=== PATIENT | female | born 1950 | race Caucasian/White ===

== ENCOUNTER → 2016-12-28 | Outpatient (CLI) | payer OTHER, MEDICARE | LOC: BMCIMAGING 09:16 | PROVIDERS: ATTEND Internal Medicine | DX: M79.89 Other specified soft tissue disorders (principal) | CPT/HCPCS: 76536-PO; 84481-90; 84482-90; 86376-90 ==

== ENCOUNTER → 2017-05-10 | Outpatient (CLI) | payer OTHER, MEDICARE | LOC: FIMAGING 13:33 | PROVIDERS: ATTEND Internal Medicine | DX: Z12.31 Encounter for screening mammogram for malignant neoplasm of breast (principal) | CPT/HCPCS: G0202 ==

== ENCOUNTER → 2017-11-10 | Outpatient (CLI) | payer OTHER, MEDICARE | LOC: FIMAGING 08:59 | PROVIDERS: ATTEND Physician Assistant | DX: M48.061 Spinal stenosis, lumbar region without neurogenic claudication (principal); M51.36 Other intervertebral disc degeneration, lumbar region; M43.16 Spondylolisthesis, lumbar region ==

== ENCOUNTER 2017-11-26 13:35 | Inpatient (IN) | payer OTHER, MEDICARE ==
--- NOTE | 2017-11-26 16:16 | EDPHY ---
H & P Time Seen by Provider: 11/26/17 16:15 HPI/ROS: Chief complaint. Shortness of breath HPI. 67-year-old female presents emergency department with a some pain in the right calf and exertional shortness of breath. She had a right knee replacement 2 months ago and was anicteric on anticoagulation for 45 days. 5 days ago she was at physical therapist and was riding a stationary bike and had shortness of breath with exertion. She also notes some shortness of breath with climbing stairs. She is no longer on anticoagulation. She has had no fever cough. She has no chest discomfort. She has no symptoms at rest. She has tightness and continued swelling in her right calf. ROS Constitutional. no fever/chills, no weakness Eyes. no problems with vision ENT. no sore throat, no nasal drainage Cardiovascular. no chest pain Respiratory. Exertional shortness of breath Abdominal. no abdominal pain, no nausea/vomiting, no diarrhea . no problems urinating MS. Swelling and tenderness right calf Skin. no rash Lymph. no swollen glands Neuro. no headache, no dizziness, no difficulty walking or with speech Past Medical/Surgical History: Healthy Social History: , nonsmoker, no alcohol Smoking Status: Never smoked Physical Exam: General Appearance: Alert well-developed female mild distress vital signs are stable Eyes: Pupils equal and round no pallor or injection. ENT, Mouth: Mucous membranes are moist. Respiratory: There are no retractions, lungs are clear to auscultation. Cardiovascular: Regular rate and rhythm. Gastrointestinal: Abdomen is soft and nontender, no masses, bowel sounds normal. Neurological: Awake and alert, sensory and motor exams grossly normal. Skin: Warm and dry, no rashes. Musculoskeletal: Neck is supple nontender. Extremities symmetrical, full range of motion. Mild tenderness and mild swelling to the right calf Psychiatric: Patient is oriented X 3, there is no agitation. Constitutional: Initial Vital Signs Temperature (C) 36.7 C 11/26/17 13:39 Heart Rate 69 11/26/17 13:39 Respiratory Rate 16 11/26/17 13:39 Blood Pressure 136/99 H 11/26/17 13:39 O2 Sat (%) 96 11/26/17 13:39 O2 Delivery Mode Room Air Allergies/Adverse Reactions: ibuprofen Allergy (Verified 11/26/17 13:39) Sulfa (Sulfonamide Antibiotics) Allergy (Verified 11/26/17 13:38) Home Medications: Medication Instructions Recorded Carboxymethylcell/Glycerin/Pf 1 drop EACHEYE PRN PRN 11/26/17 [Refresh Optive Sensitive Drops] Compounded Bioident Hormones 1 unit PO DAILY 11/26/17 Levothyroxine [Synthroid 25 mcg 25 mcg PO DAILY06 11/26/17 (*)] Liothyronine Sodium [Liothyronine 5 mg PO 06,13 11/26/17 Sodium] Montelukast Sodium [Singulair 10 10 mg PO DAILY 11/26/17 mg (*)] cycloSPORINE 0.05% [Restasis Opht 1 drop EACHEYE HS 11/26/17 Drops(*)] Medical Decision Making - Diagnostics Imaging Results: Imaging Impressions Extremity Venous Study 11/26/17 16:18 Impression: 1. DVT in a peroneal vein from the proximal to mid calf. 2. Small Reynolds's cyst. Findings discussed with CANDY CHAVEZ 11/26/2017 at 17:16. Chest X-Ray 11/26/17 16:19 Impression: No evidence for acute cardiopulmonary abnormality. Chest/Thorax CTA 11/26/17 17:26 Impression: Moderate bilateral pulmonary embolus. Results called and discussed with Candy Chavez M.D., on November 26, 2017 at 1808. A test result has been communicated to a licensed care provider and documented in the [facility] Critical Result system on 11/26/2017 18:09, Message ID [id number]. Ultrasound reviewed by me and discussed with Dr. aPrish shows DVT in the peroneal vein Chest CT with IV contrast shows bilateral PEs. Reviewed by me and discussed with Dr. Davila Procedures: Lovenox subcutaneously ED Course/Re-evaluation: Re-evaluation at 5:25 p.m.. Patient and I discussed ultrasound findings and recommendation for chest CT looking for pulmonary embolus. She expresses understanding and agreement I consulted discussed case with Dr. Milligan, hospitalist, who agrees to the admission Differential Diagnosis: The patient has been DVT as well as pulmonary embolus. She is at risk because of recent knee surgery. I considered pneumonia, acute coronary syndrome, calf strain as well - Data Points Laboratory Results: Laboratory Results 11/26/17 16:20 11/26/17 16:20 11/26/17 11/26/17 11/26/17 16:20 16:20 16:20 WBC RBC Hgb Hct MCV MCH MCHC RDW Plt Count MPV Neut % (Auto) Lymph % (Auto) [place] % (Auto) Eos % (Auto) Baso % (Auto) Nucleat RBC Rel Count Absolute Neuts (auto) Absolute Lymphs (auto) Absolute Monos (auto) Absolute Eos (auto) Absolute Basos (auto) Absolute Nucleated RBC Immature Gran % Immature Gran # D-Dimer 3.36 ug/mLFEU H ug/mLFEU (0.00-0.50) Sodium 144 mEq/L mEq/L (135-145) Potassium 4.0 mEq/L mEq/L (3.5-5.2) Chloride 108 mEq/L mEq/L (97-110) Carbon Dioxide 24 mEq/l mEq/l (22-31) Anion Gap 12 mEq/L mEq/L (8-16) BUN 14 mg/dL mg/dL (7-23) Creatinine 0.9 mg/dL mg/dL (0.6-1.0) Estimated GFR > 60 Glucose 80 mg/dL mg/dL (70-100) Calcium 9.4 mg/dL mg/dL (8.5-10.4) Troponin I < 0.012 ng/mL ng/mL (0.000-0.034) 11/26/17 16:20 WBC 6.05 10^3/uL 10^3/uL (3.80-9.50) RBC 4.68 10^6/uL 10^6/uL (4.18-5.33) Hgb 15.1 g/dL g/dL (12.6-16.3) Hct 44.9 % % (38.0-47.0) MCV 95.9 fL fL (81.5-99.8) MCH 32.3 pg pg (27.9-34.1) MCHC 33.6 g/dL g/dL (32.4-36.7) RDW 13.2 % % (11.5-15.2) Plt Count 218 10^3/uL 10^3/uL (150-400) MPV 10.4 fL fL (8.7-11.7) Neut % (Auto) 65.1 % % (39.3-74.2) Lymph % (Auto) 26.3 % % (15.0-45.0) [place] % (Auto) 6.1 % % (4.5-13.0) Eos % (Auto) 2.0 % % (0.6-7.6) Baso % (Auto) 0.3 % % (0.3-1.7) Nucleat RBC Rel Count 0.0 % % (0.0-0.2) Absolute Neuts (auto) 3.94 10^3/uL 10^3/uL (1.70-6.50) Absolute Lymphs (auto) 1.59 10^3/uL 10^3/uL (1.00-3.00) Absolute Monos (auto) 0.37 10^3/uL 10^3/uL (0.30-0.80) Absolute Eos (auto) 0.12 10^3/uL 10^3/uL (0.03-0.40) Absolute Basos (auto) 0.02 10^3/uL 10^3/uL (0.02-0.10) Absolute Nucleated RBC 0.00 10^3/uL 10^3/uL (0-0.01) Immature Gran % 0.2 % % (0.0-1.1) Immature Gran # 0.01 10^3/uL 10^3/uL (0.00-0.10) D-Dimer Sodium Potassium Chloride Carbon Dioxide Anion Gap BUN Creatinine Estimated GFR Glucose Calcium Troponin I Medications Given: Discontinued Medications Enoxaparin Sodium (Lovenox) 65 mg SC EDNOW ONE Stop: 11/26/17 19:31 Last Admin: 11/26/17 19:35 Dose: 65 mg Sodium Chloride (Ns) 1,000 mls @ 0 mls/hr IV ONCE ONE; Wide Open PRN Reason: Protocol Stop: 11/26/17 17:27 Last Admin: 11/26/17 17:50 Dose: 1,000 mls Departure - Departure Disposition: [facility] Acute Clinical Impression: Pulmonary embolus Qualifiers: Pulmonary embolism type: other Chronicity: acute Acute cor pulmonale presence: without acute cor pulmonale Qualified Code(s): I26.99 - Other pulmonary embolism without acute cor pulmonale Deep venous thrombosis Qualifiers: DVT location: lower extremity Affected thrombotic vein of extremity: other lower extremity vein Condition: Fair
[2017-11-26 16:40] LABS: PLATELET COUNT 218 10^3/uL (150-400)
[2017-11-26] MEDS ORDERED: NS 1,000 ML IV ONE (17:26)
[2017-11-26] MEDS ORDERED: IOPAMIDOL (ISOVUE 370) 100 ML BTL IV ONE (17:32)
[2017-11-26] MEDS ORDERED: ENOXAPARIN 60 MG/0.6 ML SYR SC ONE (18:29)
[2017-11-26] MEDS ORDERED: ENOXAPARIN 80 MG/0.8 ML SYR SC ONE (19:30)
[2017-11-26] MEDS ORDERED: ONDANSETRON DISINTEGRATING 4 MG TAB PO PRN (20:50)
[2017-11-26] MEDS ORDERED: ACETAMINOPHEN 325 MG TAB PO PRN (20:50)
[2017-11-26] MEDS ORDERED: oxyCODONE IR 5 MG TAB PO PRN (20:50)
[2017-11-26] MEDS ORDERED: ONDANSETRON 4 MG/2 ML VIAL IVP PRN (20:50)
--- NOTE | 2017-11-26 21:21 | PDGENHP ---
History and Physical - Chief Complaint SOB - History of Present Illness 67 yo female with h/o TKA 2 months prior to arrival presents to ED with SOB. She took Eliquis 2.5 mg twice daily for 45 days post-operatively for DVT prophylaxis. She then developed back pain and was diagnosed with a lumbar facet cyst by MRI 11/10/2017, for which she received a steroid injection ~2 weeks ago. This was a setback in terms of her mobility and she acknowledges being quite sedentary over the past 2 weeks since stopping her Eliquis. Yesterday, she was cleared to ride the exercise bike and she "went for it" on the bike, really pushing herself. She became abnormally short of breath during exercise and grew concerned she may have exercise induced asthma. She also reports a calf cramp in her right calf. She denies chest pain or SOB at rest. No fevers, chills or cough. In the ED, u/s of the leg revealed a DVT and CTPA showed moderate volume b/l PE' s. She was given 1 mg / kg dose of Lovenox and is admitted to the hospital for further management. History Information - Allergies/Home Medication List Allergies/Adverse Reactions: ibuprofen Allergy (Verified 11/26/17 13:39) Sulfa (Sulfonamide Antibiotics) Allergy (Verified 11/26/17 13:38) Home Medications: Carboxymethylcell/Glycerin/Pf [Refresh Optive Sensitive Drops] 1 drop EACHEYE PRN PRN 11/26/17 [Last Taken Unknown] Compounded Bioident Hormones 1 unit PO DAILY 11/26/17 [Last Taken Unknown] Levothyroxine [Synthroid 25 mcg (*)] 25 mcg PO DAILY06 11/26/17 [Last Taken ] Liothyronine Sodium [Liothyronine Sodium] 5 mg PO 06,13 11/26/17 [Last Taken ] Montelukast Sodium [Singulair 10 mg (*)] 10 mg PO DAILY 11/26/17 [Last Taken ] cycloSPORINE 0.05% [Restasis Opht Drops(*)] 1 drop EACHEYE HS 11/26/17 [Last Taken Unknown] I have personally reviewed and updated: family history, medical history, social history, surgical history - Past Medical History Additional medical history: osteoarthritis. lumbar cyst s/p steroid injection - Surgical History Additional surgical history: Right TKA 09/2018 - Family History Positive for: non-pertinent - Social History Smoking Status: Never smoked Alcohol Use: None Drug Use: None Additional social history: , at bedside. Review of Systems Review of Systems: ROS: 10pt was reviewed & negative except for what was stated in HPI & below Physical Exam Physical Exam: Temp Pulse Resp BP Pulse Ox 36.7 C 62 20 111/90 H 99 11/26/17 13:39 11/26/17 19:06 11/26/17 19:06 11/26/17 19:06 11/26/17 19:06 Constitutional: no apparent distress Eyes: PERRL Ears, Nose, Mouth, Throat: moist mucous membranes Cardiovascular: regular rate and rhythym, no murmur, rub, or gallop Respiratory: no respiratory distress, clear to auscultation Gastrointestinal: normoactive bowel sounds, soft, non-tender abdomen Skin: warm Musculoskeletal: full muscle strength Neurologic: AAOx3 Psychiatric: interacting appropriately Lab Data & Imaging Review 11/26/17 16:20 11/26/17 16:20 WBC 6.05 10^3/uL (3.80-9.50) 11/26/17 16:20 RBC 4.68 10^6/uL (4.18-5.33) 11/26/17 16:20 Hgb 15.1 g/dL (12.6-16.3) 11/26/17 16:20 Hct 44.9 % (38.0-47.0) 11/26/17 16:20 MCV 95.9 fL (81.5-99.8) 11/26/17 16:20 MCH 32.3 pg (27.9-34.1) 11/26/17 16:20 MCHC 33.6 g/dL (32.4-36.7) 11/26/17 16:20 RDW 13.2 % (11.5-15.2) 11/26/17 16:20 Plt Count 218 10^3/uL (150-400) 11/26/17 16:20 MPV 10.4 fL (8.7-11.7) 11/26/17 16:20 Neut % (Auto) 65.1 % (39.3-74.2) 11/26/17 16:20 Lymph % (Auto) 26.3 % (15.0-45.0) 11/26/17 16:20 [place] % (Auto) 6.1 % (4.5-13.0) 11/26/17 16:20 Eos % (Auto) 2.0 % (0.6-7.6) 11/26/17 16:20 Baso % (Auto) 0.3 % (0.3-1.7) 11/26/17 16:20 Nucleat RBC Rel Count 0.0 % (0.0-0.2) 11/26/17 16:20 Absolute Neuts (auto) 3.94 10^3/uL (1.70-6.50) 11/26/17 16:20 Absolute Lymphs (auto) 1.59 10^3/uL (1.00-3.00) 11/26/17 16:20 Absolute Monos (auto) 0.37 10^3/uL (0.30-0.80) 11/26/17 16:20 Absolute Eos (auto) 0.12 10^3/uL (0.03-0.40) 11/26/17 16:20 Absolute Basos (auto) 0.02 10^3/uL (0.02-0.10) 11/26/17 16:20 Absolute Nucleated RBC 0.00 10^3/uL (0-0.01) 11/26/17 16:20 Immature Gran % 0.2 % (0.0-1.1) 11/26/17 16:20 Immature Gran # 0.01 10^3/uL (0.00-0.10) 11/26/17 16:20 D-Dimer 3.36 ug/mLFEU (0.00-0.50) H 11/26/17 16:20 Sodium 144 mEq/L (135-145) 11/26/17 16:20 Potassium 4.0 mEq/L (3.5-5.2) 11/26/17 16:20 Chloride 108 mEq/L (97-110) 11/26/17 16:20 Carbon Dioxide 24 mEq/l (22-31) 11/26/17 16:20 Anion Gap 12 mEq/L (8-16) 11/26/17 16:20 BUN 14 mg/dL (7-23) 11/26/17 16:20 Creatinine 0.9 mg/dL (0.6-1.0) 11/26/17 16:20 Estimated GFR > 60 11/26/17 16:20 Glucose 80 mg/dL (70-100) 11/26/17 16:20 Calcium 9.4 mg/dL (8.5-10.4) 11/26/17 16:20 Troponin I < 0.012 ng/mL (0.000-0.034) 11/26/17 16:20 Visualized and Interpreted EKG results: Yes EKG additional interpertation: Q3T3- signs of right heart strain Assessment & Plan Assessment: B/L Pulmonary Emboli with right DVT - This was likely provoked by her recent surgery and sedentary period following completion of her 45 day course of Eliquis during which time she underwent a lumbar spinal steroid injection. She is hemodynamically stable. No hypotension. -admit to PCU, monitor on telemetry -relative bedrest for now given DVT -check EKG now to evaluate for signs of right heart strain- reviewed (Q3, T3 suggest right heart strain) -echo in am -trend troponin -cont 1 mg/kg Lovenox -discussed transition to oral AC. She wishes to use Eliquis, but already used the 30 day coupon and will require a prior authorization for this. Lumbar back pain s/p steroid injection - she is pain controlled now. Follow up with her spine surgeon. Full code Dispo - inpt, anticipate >48 hrs hospitalization given moderate clot burden with EKG signs of right heart strain
--- NOTE | 2017-11-26 21:55 | CPEKG ---
Heart Rate: 64 RR Interval: 938 P-R Interval: 144 QRSD Interval: 90 QT Interval: 412 QTC Interval: 425 P Townley: 59 QRS Townley: -1 T Wave Townley: 1 EKG Severity - BORDERLINE ECG - EKG Impression: SINUS RHYTHM EKG Impression: PROBABLE LEFT ATRIAL ABNORMALITY Electronically Signed By: Artemio Jacobson 28-Nov-2017 09:20:29
[2017-11-26] MEDS ORDERED: DIAZEPAM 2 MG TAB PO PRN (22:17)
[2017-11-26 23:16] VITALS: TEMP 97.6
[2017-11-27 06:30] VITALS: RESP 18
[2017-11-27 08:02] VITALS: BP 128/78; PULSE 73; O2SAT 98
--- NOTE | 2017-11-27 09:24 | ASMTCASEMG ---
Living Arrangements What is your living Answers: Alone arrangement? Who do you live with? Type Of Residence What kind of residence do Answers: House you live in? Discharge Plan Comments Coordination Status Comments Notes: Pt is a 67 y/o female admitted for PE and shortness of breath. Pt will most likely d/c independent when medically stable. No therapies ordered at this time. CM available for changes. Plan: Independent Date Signed: 11/27/2017 09:23 AM Electronically Signed By:CHRISTOPH Lora
[2017-11-27] MEDS: ENOXAPARIN 80 MG/0.8 ML SYR SC SCH ×2 (09:33→09:35)
--- NOTE | 2017-11-27 09:56 | ECHO ---
[email or web address] [address] Main: [phone] Fax: Transthoracic Echocardiogram Name: STONE GALAN MR#: [id number] Study Date: 11/27/2017 Study Time: 08:32 AM Date of : 1950 Age: 67 year(s) Height: 165.1 cm (65 in.) Weight: 65.77 kg (145 lb.) BSA: 1.73 m2 Gender: Female Examination: Echo Indication: B/L PE, eval for right heart strain Image Quality: Adequate Contrast: Requested by: Dilcia Osborne BP: 128 mmHg/78 mmHg Heart Rate: Rhythm: Normal sinus rhythm Indication: B/L PE, eval for right heart strain Procedure Staff Slot Router: Lian Echavarria Physician: Requesting Provider: Measurements: Chambers Valvular Assessment AV/MV Valvular Assessment TV/PV Normal Normal Normal Name Value Range Name Value Range Name Value Range Ao Rosalind (MM): 2.6 cm (2.2 cm-3.7 AV Vmax: 1.19 m/s (1 m/s-1.7 TR Vmax: 3.23 mm/s ( - ) cm) m/s) TR PGmax: 42 mmHg ( - ) IVSd (2D): 0.9 cm (0.6 cm-1.1 AV maxP mmHg ( - ) syst. PAP: 47 mmHg ( - ) cm) LVOT Vmax: 0.91 m/s (0.7 m/s-1.1 PV Vmax: 0.65 m/s (0.6 m/s-0.9 LVDd (2D): 3.8 cm (3.9 cm-5.3 m/s) m/s) cm) MV E Vmax: 0.64 m/s ( - ) PV PGmax: 2 mmHg ( - ) LVDs (2D): 2.5 cm (2.1 cm-4 MV A Vmax: 0.33 m/s ( - ) cm) MV E/A: 1.94 ( - ) LVPWd (2D): 1.0 cm ( - ) LVEF (MOD4): 68 % (>=55 %) Continued Measurements: Chambers Valvular Assessment AV/MV Valvular Assessment TV/PV Name Value Name Value Name Value LADs Lon.3 cm MV DecTime: 176 m/s CVP (est.): 5 mmHg LA Area: 12.0 cm2 MV E/E' Lateral: 5.80 TAPSE: 2.4 cm RA Area: 12.3 cm2 Additional Vessels Name Value Ao Ascendin.7 cm Patient: STONE GALAN Study Date: 11/27/2017 Page 1 of 2 08:32 AM Findings: Left Ventricle: Normal size left ventricle. No LV hypertrophy. Normal global systolic LV function. EF is 68 %. No regional wall motion abnormality. Normal diastolic LV function. Right Ventricle: Normal size right ventricle. Normal RV function. Left Atrium: The left atrium is normal in size. Right Atrium: The right atrium is normal in size. Mitral Valve: The mitral valve is normal in appearance and function. Mild mitral valve regurgitation is present. No mitral stenosis is present. Aortic Valve: The aortic valve is normal in appearance and function. There is no aortic valve regurgitation. No aortic valve stenosis is present. Tricuspid Valve: The tricuspid valve is normal in appearance and function. Moderate tricuspid regurgitation is present. The pulmonary artery pressure is moderately increased. Right ventricular systolic pressure measures 47mmHg. Pulmonic Valve: The pulmonic valve is normal in appearance and function. Trivial to mild pulmonic valve regurgitation. Aorta: The aorta is normal. Normal size aortic root measuring 2.6 cm. Normal size ascending aorta measuring 2.7 cm. Pericardium: No pericardial effusion. (No Signature Object) Patient: STONE GALAN Study Date: 11/27/2017 Page 2 of 2 08:32 AM [id number]
--- NOTE | 2017-11-27 12:18 | PDMN ---
Medical Necessity Medical necessity: Pt meets IP criteria per MD; est los >2 mn for eval/tx of bilateral PEs with RLE DVT; admit for further workup/management given moderate clot burden w/EKG signs of R heart strain; hx recent TKA, lumbar facet cyst w/ recent spinal steroid injection; per H&P & order 11/26/17
--- NOTE | 2017-11-27 15:00 | ASDISCHSUM ---
Discharge Information Plan Status:Home with No Needs Medically Cleared to Leave:11/26/2017 Discharge Date:11/27/2017 01:26 PM D/C Disposition: ADT D/C Disposition:Home, Routine, Self-Care Projected Discharge Date:11/27/2017 12:00 AM Transportation at D/C: Discharge Delay Reason: Follow-Up Date:11/27/2017 12:00 AM Discharge Slot: Final Diagnosis: Placement Information Patient Contact Information Contact Name:JIM Relationship: Address:[address] City:[facility] Phone: [facility]/Zip Code:[place] [address] Email: Financial Information Financial Class: Primary Plan Desc:MEDICARE INPATIENT Primary Plan Number:[id number] Secondary Plan Desc:[employer]/MDR SUPPLEMENT Secondary Plan Number:[id number] Assessment Information [facility] Initial CM Assessment Living Arrangements What is your living Answers: Alone arrangement? Who do you live with? Type Of Residence What kind of residence do Answers: House you live in? Discharge Plan Comments Coordination Status Comments Notes: Pt is a 67 y/o female admitted for PE and shortness of breath. Pt will most likely d/c independent when medically stable. No therapies ordered at this time. CM available for changes. Plan: Independent Date Signed: 11/27/2017 09:23 AM Electronically Signed By:CHRISTOPH Lora Intervention Information
--- NOTE | 2017-11-27 18:47 | GDS ---
[f rep st] DISCHARGE SUMMARY DISCHARGE DIAGNOSIS: Acute pulmonary embolism. HISTORY OF PRESENT ILLNESS: A 67-year-old female who recently underwent orthopedic surgery on approp riate prophylaxis with Eliquis, who returns to the hospital with complaints of shortness of breath. For details of the patient's initial presentation, please see the history and physical dated 11/26/19 18. HOSPITAL COURSE: Acute pulmonary embolism. The patient's likely provoking risk factor with recent s urgical intervention and relative immobility. The patient did take her Eliquis prophylaxis for the a ppropriate time prescribed postsurgical, but does report that her activity level remained quite limit ed secondary to back pain and stomach issues. The patient presents with shortness of breath and is f ound to have pulmonary embolism. The patient was initiated on Lovenox therapy overnight. Based on [facility] insurance coverage, she is opting to be treated post disposition with Coumadin. She has been prov ided with bridging therapy with Lovenox injections and initiated on warfarin therapy the evening of d ischarge. She will follow in her primary care clinic for INR checks and titration of her outpatient anticoagulation. The patient was stable, not requiring oxygen. Normal heart rate. A transthoracic echocardiogram confirming normal LV size and function on the day of disposition. FOLLOWUP APPOINTMENTS: Dr. Chambers in the [facility] for her INR check in the next 48-72 hours. PENDING STUDIES: None. TIME SPENT: I spent greater than 30 minutes in the planning and coordination of this discharge. /[id number]/MODL
== END 2017-11-27 13:26 | disposition home or self-care (01) | DRG 176 ==
LOC: F2W 21:32
PROVIDERS: ADMIT Hospitalist; ATTEND Hospitalist
DX: I26.99 Other pulmonary embolism without acute cor pulmonale (principal); I82.4Z1 Acute embolism and thrombosis of unspecified deep veins of right distal lower extremity; Z96.651 Presence of right artificial knee joint
CPT/HCPCS: J1650; Q9967

== ENCOUNTER 2018-02-10 18:11 | Emergency (ER) | payer OTHER, MEDICARE ==
[2018-02-10 18:15] VITALS: TEMP 97.9; O2SAT 96
--- NOTE | 2018-02-10 18:28 | EDPHY ---
H & P Time Seen by Provider: 02/10/18 18:16 HPI/ROS: CHIEF COMPLAINT: Left calf pain HISTORY OF PRESENT ILLNESS: Patient is a history of pulmonary embolism and DVT after knee replacement on the right leg. She is currently on warfarin and her last INR week ago was 1.9. Today she was sitting on the sofa and felt a"pop"in her left calf identical to her previous DVT and presents concerned that she may have a clot. Pain is a little bit worse with flexion and extension of her foot. Does not have chest pain or shortness of breath or chest pain or Respiratory symptoms. REVIEW OF SYSTEMS: No direct blow, or injury. No weakness or numbness in the left foot. She has been taking D-Mannose to try and prevent UTI, has questions about it is compatible with warfarin. PAST MEDICAL HISTORY: Includes right knee surgery with postop DVT and PE Social history: The primary care is [facility] Dr. Chambers General Appearance: Alert and conversant, cooperative. Emergency Department course/MDM: Alert, ambulatory, speaks full sentences and no respiratory distress. Normal range of motion of the left knee. Little bit of calf tenderness but compartments are soft and no visible swelling. Normal motor sensory and dorsalis pedis in the left foot. Skin intact and not red or warm or hot to the touch, no rashes. Plan for ultrasound of the left leg, discharge if negative. More likely to be small hematoma or muscle strain, less likely to be DVT. 1830: Discussed with pharmacy, no problems with D-Mannose and warfarin, does not have vitamin K. 1936: Results discussed, symptomatic treatment, stable for discharge Smoking Status: Never smoked Constitutional: Initial Vital Signs Temperature (C) 36.6 C 02/10/18 18:13 Heart Rate 60 02/10/18 18:13 Respiratory Rate 20 02/10/18 18:13 Blood Pressure 140/78 H 02/10/18 18:13 O2 Sat (%) 96 02/10/18 18:13 O2 Delivery Mode Room Air Allergies/Adverse Reactions: ibuprofen Allergy (Verified 02/10/18 18:12) Sulfa (Sulfonamide Antibiotics) Allergy (Verified 02/10/18 18:12) Home Medications: Medication Instructions Recorded Carboxymethylcell/Glycerin/Pf 1 drop EACHEYE PRN PRN 11/26/17 [Refresh Optive Sensitive Drops] Compounded Bioident Hormones 1 unit PO DAILY 11/26/17 Levothyroxine [Synthroid 25 mcg 25 mcg PO DAILY06 11/26/17 (*)] Liothyronine Sodium 5 mg PO 06,13 11/26/17 Montelukast Sodium [Singulair 10 10 mg PO DAILY 11/26/17 mg (*)] cycloSPORINE 0.05% [Restasis Opht 1 drop EACHEYE HS 11/26/17 Drops(*)] Enoxaparin [Lovenox 80 MG (*)] 70 mg SC BID #14 syr 11/27/17 Warfarin Sodium 5 mg PO DAILY #30 tablet 11/27/17 MDM/Departure - MDM Imaging Results: Imaging Impressions Extremity Venous Study 02/10/18 18:26 Impression: No evidence of deep vein thrombosis. Findings discussed with SERGIO OHARA 02/10/2018 at 19:35. Left leg ultrasound negative for DVT. Jem at 1935. Imaging: Discussed imaging studies w/ on call pharmacy technician Radiologist - Depart Disposition: Home, Routine, Self-Care Clinical Impression: Pain in left lower leg Condition: Good Instructions: Leg Pain (ED) Referrals: Rosa Chambers MD [Primary Care Provider] - As per Instructions
[2018-02-10 19:42] VITALS: BP 135/70; PULSE 73; RESP 16
== END 2018-02-10 19:41 | disposition home or self-care (01) ==
DX: M79.605 Pain in left leg (principal); Z79.01 Long term (current) use of anticoagulants

== ENCOUNTER → 2018-05-14 | Outpatient (CLI) | payer OTHER, MEDICARE | LOC: FIMAGING 10:21 | PROVIDERS: ATTEND Internal Medicine | DX: Z12.31 Encounter for screening mammogram for malignant neoplasm of breast (principal) ==

== ENCOUNTER 2018-08-17 12:53 | Emergency (ER) | payer OTHER, MEDICARE ==
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
[2018-08-17] MEDS ORDERED: APIXABAN 5 MG TAB PO ONE (14:44)
[2018-08-17 14:55] LABS: PLATELET COUNT 271 10^3/uL (150-400)
[2018-08-17 15:07] LABS: INR 0.9 (0.83-1.16); PROTIME(PATIENT) 12.4 SEC (12.0-15.0)
[2018-08-17 15:11] VITALS: BP 107/68
== END 2018-08-17 15:14 | disposition home or self-care (01) ==
DX: I82.441 Acute embolism and thrombosis of right tibial vein (principal); Z86.718 Personal history of other venous thrombosis and embolism; Z86.711 Personal history of pulmonary embolism; Z96.651 Presence of right artificial knee joint

== ENCOUNTER → 2019-01-31 | Outpatient (CLI) | payer OTHER, MEDICARE | LOC: BMCIMAGING 17:02 | PROVIDERS: ATTEND Family Medicine | DX: M18.12 Unilateral primary osteoarthritis of first carpometacarpal joint, left hand (principal) ==